=== PATIENT | female | born 1960 | race Caucasian/White ===

== ENCOUNTER 2018-07-20 14:59 | Emergency (ER) | payer OTHER ==
--- NOTE | 2018-07-20 15:33 | ED Physician Chart ---
ED Chief Complaint/HPI - Patient Information Date Seen:: 07/20/18 Time Seen:: 15:17 Chief Complaint:: LEFT WRIST History of Present Illness:: THIS IS A 57 YO FEMALE WHO STATES THAT SHE BROKE HER FALL TODAY WITH HER LEFT HAND AND SUSTAINED AN INJURY TO HER LEFT WRIST. SHE DENIES ALL OTHER INJURY. Allergies:: Allergies Allergy/AdvReac Type Severity Reaction Status Date / Time No Known Allergies Allergy Verified 07/20/18 15:07 Vitals:: Vital Signs - 8 hr 07/20/18 15:08 Temp 99 F HR 115 RR 18 BP 139/86 O2 Sat % 97 Historian:: Patient Review:: Nurse's Note Reviewed ED Review of Systems - Review of Systems General/Constitutional: No fever, No chills, No weight loss, No weakness, No diaphoresis, No edema, No loss of appetite Skin: No skin lesions, No rash, No bruising Head: No headache, No light-headedness Eyes: No loss of vision, No pain, No diplopia ENT: No earache, No nasal drainage, No sore throat, No tinnitus Neck: No neck pain, No swelling, No thyromegaly, No stiffness, No mass noted Cardio Vascular: No chest pain, No palpitations, No PND, No orthopnea, No edema Pulmonary: No SOB, No cough, No sputum, No wheezing GI: No nausea, No vomiting, No diarrhea, No pain, No melena, No hematochezia, No constipation, No hematemesis G/U: No dysuria, No frequency, No hematuria Musculoskeletal: Bone or joint pain (LEFT WRIST INJURY), No back pain, No muscle pain Endocrine: No polyuria, No polydipsia Psychiatric: No prior psych history, No depression, No anxiety, No suicidal ideation Hematopoietic: No bruising, No lymphadenopathy Allergic/Immuno: No urticaria, No angioedema Neurological: No syncope, No focal symptoms, No weakness, No paresthesia, No headache, No seizure, No dizziness, No confusion, No vertigo ED Past Medical History - Past Medical History Obtainable: Yes Past Medical History: No significant medical hx, Other (DEPRESSION) Family History: None Social History: Non Smoker, No Alcohol, No Drug Use Surgical History: other (L KNEE SURGERY) ED Physical Exam - Physical Examination General/Constitutional: Awake, Well-developed, well-nourished, Alert, No distress, GCS 15, Non-toxic appearing, Ambulatory Head: Atraumatic Eyes: Lids, conjuctiva normal, PERRL, EOMI Skin: Nl inspection, No rash, No skin lesions, No ecchymosis, Well hydrated, No lymphadenopathy ENMT: External ears, nose nl, Nasal exam nl, Lips, teeth, gums nl Neck: Nontender, Full ROM w/o pain, No JVD, No nuchal rigidity, No bruit, No mass, No stridor Respiratory: Nl effort/Exclusion, Clear to Auscultation, No Wheeze/Rhonchi/Rales Cardio Vascular: RRR, No murmur, gallop, rubs, NL S1 S2 GI: No tenderness/rebounding/guarding, No organomegaly, No hernia, Normal BS's, Nondistended, No mass/bruits, No McBurney tenderness : No CVA tenderness Extremities: No tenderness or effusion (THERE IS TENDERNESS, DEFORMITY, SWELLING AND DECREASE ROM OF THE LEFT WRIST. SENSORY AND PULSES ARE NORMAL.), Full ROM, normal strength in all extremities, No edema, Normal digits & nails Neuro/Psych: Alert/oriented, DTR's symmetric, Normal sensory exam, Normal motor strength, Judgement/insight normal, Mood normal, Normal gait, No focal deficits Misc: Normal back, No paraspinal tenderness ED Labs/Radiology/EKG Results - Radiology Results Results: X-RAY OF THE LEFT WRIST = FRACTURE NOTED. ED Assessment - Assessment General Assessment: FRACTURED LEFT WRIST Splint Care: Splint applied ED Septic Shock - . Is Septic Shock (SBP<90, OR Lactate>4 mmol\L) present?: No - <6hrs of presentation: Vital Signs: Vital Signs - 8 hr 07/20/18 15:08 Temp 99 F HR 115 RR 18 BP 139/86 O2 Sat % 97 ED Reassessment (Disposition) - Reassessment Reassessment Condition:: Improved - Diagnosis Diagnosis:: LEFT WRIST FRACTURED - Aftercare/Follow up Instructions Aftercare/Follow-Up Instructions:: Counseled pt regarding lab results/diagnosis & need follow up, Refer to Discharge Instructions, Counseled pt & family regarding lab results/diagnosis & need follow up Medication Prescribed:: MOTRIN - Patient Disposition Discharge/Transfer:: Home Condition at Disposition:: Improved
--- NOTE | 2018-07-21 09:38 | Diagnostic Imaging Report ---
Left wrist (3 views) HISTORY: Pain, trauma There is an impacted, displaced, comminuted fracture of the distal radius. Avulsion fracture of the ulnar is dilated also seen. IMPRESSION: 1. Impacted, displaced, comminuted distal radial fracture 2. Avulsion fracture ulnar styloid
== END 2018-07-20 16:31 | disposition home or self-care (01) ==
LOC: ER 14:59
DX: S52.592A Other fractures of lower end of left radius, initial encounter for closed fracture (principal); S52.612A Displaced fracture of left ulna styloid process, initial encounter for closed fracture; W18.39XA Other fall on same level, initial encounter; Y93.89 Activity, other specified; Y92.89 Other specified places as the place of occurrence of the external cause; Y99.8 Other external cause status
CPT/HCPCS: 99283; 29125; 73110; 96372; J1885; Z7502